=== PATIENT | male | born 1955 | race Caucasian/White ===

== ENCOUNTER → 2020-03-04 08:04 | Outpatient (BNVA) | payer MEDICARE, MEDICAID, SELFPAY | PROVIDERS: PCP Physician Assistant; Visit Provider Family Medicine Adult Medicine | DX: M13.0 Polyarthritis, unspecified (principal); M19.019 Primary osteoarthritis, unspecified shoulder; Z79.891 Long term (current) use of opiate analgesic | CPT/HCPCS: 99212 ==

== ENCOUNTER 2020-04-29 08:00 | Outpatient (REF) | payer MEDICARE, MEDICAID, SELFPAY ==
[2020-04-29 10:04] LABS: Basophils Percent Auto 0.5 % (0-2); Eosinophils Absolute Auto 0.5 X10*3/uL (0.0-0.4); Eosinophils Percent Auto 5.8 % (0-4); Hematocrit 39.8 % (42-52); Hemoglobin 11.9 g/dl (14.0-18.0); Imm Gran Abs Auto 0.04 X10*3/uL (0.00-0.03); Imm Gran Pct Auto 0.5 % (0.0-0.4); Lymphocytes Absolute Auto 1.6 X10*3/uL (1.2-4.9); Lymphocytes Percent Auto 19.1 % (20-40); MANUAL DIFF FLAG NO; Mean Corpuscular HGB Conc 29.9 g/dl (31.0-36.0); Mean Corpuscular Hemoglobin 29.8 pg (27.0-33.0); Mean Corpuscular Volume 99.7 fL (80-98); Monocytes Absolute Auto 0.4 X10*3/uL (0.1-1.2); Monocytes Percent Auto 5.2 % (2-11); Neutrophils Absolute Auto 5.9 X10*3/uL (2.0-8.3); Neutrophils Percent Auto 68.9 % (45-73); Platelet Count 245 X10*3/uL (160-400); Red Blood Count 3.99 X10*6/uL (4.60-5.80); White Blood Count 8.5 X10*3/uL (4.8-10.8)
[2020-04-29 10:36] LABS: B Type Natriuretic Peptide 54 pg/mL (<100)
[2020-04-29 10:41] LABS: Alanine Aminotransferase 16 U/L (0-40); Albumin Level 4.5 g/dL (3.5-5.0); Alkaline Phosphatase 76 U/L (39-117); Anion Gap 13 (12-20); Aspartate Amino Transferase 16 U/L (5-37); Bilirubin Total 0.7 mg/dL (0.0-1.0); Blood Urea Nitrogen 17 mg/dL (9-16); Calcium 8.7 mg/dL (8.4-10.2); Carbon Dioxide 35 mmol/L (22-29); Chloride 95 mmol/L (96-108); Cholesterol 195 mg/dL; Estimated Glomerular Filt Rate > 60; Glucose Fasting 100 mg/dL (60-99); HDL Cholesterol 43 mg/dL; LDL Cholesterol Calculated 126 mg/dl; Potassium 4.4 mmol/l (3.3-5.1); Sodium 139 mmol/L (135-145); Total Protein 7.2 g/dL (6.5-8.0); Triglycerides 131 mg/dL
[2020-04-29 10:54] LABS: Prostate Specific Antigen Scr 1.06 ng/mL (<0.05-4.0); TSH reflex Free T4 2.47 mIU/mL (0.32-4.0)
== END 2020-04-29 08:01 | disposition home or self-care (01) ==
LOC: HO.LAB 08:00
PROVIDERS: PCP Physician Assistant; Referring Provider Physician Assistant; Visit Provider Family Medicine Adult Medicine
DX: I11.0 Hypertensive heart disease with heart failure (principal); I50.32 Chronic diastolic (congestive) heart failure; M13.0 Polyarthritis, unspecified; M19.019 Primary osteoarthritis, unspecified shoulder; M54.5 Low back pain; E78.2 Mixed hyperlipidemia; Z12.5 Encounter for screening for malignant neoplasm of prostate
CPT/HCPCS: 36415; 80053; 80061; 83880; 84153; 84443; 85025; 99212

== ENCOUNTER → 2020-06-24 08:05 | Outpatient (BNVA) | payer MEDICARE, MEDICAID, SELFPAY | PROVIDERS: PCP Physician Assistant; Visit Provider Family Medicine Adult Medicine | DX: M19.019 Primary osteoarthritis, unspecified shoulder (principal); M54.5 Low back pain | CPT/HCPCS: 99212 ==

== ENCOUNTER → 2020-07-29 10:14 | Outpatient (BNVA) | payer MEDICARE, MEDICAID, SELFPAY | PROVIDERS: PCP Physician Assistant; Visit Provider Family Medicine Adult Medicine | DX: M13.0 Polyarthritis, unspecified (principal); M19.019 Primary osteoarthritis, unspecified shoulder; M54.5 Low back pain | CPT/HCPCS: Q3014 ==

== ENCOUNTER → 2020-09-23 08:00 | Outpatient (BNVA) | payer MEDICARE, MEDICAID, SELFPAY | PROVIDERS: PCP Physician Assistant; Visit Provider Family Medicine Adult Medicine | DX: M13.0 Polyarthritis, unspecified (principal); M54.5 Low back pain; J44.9 Chronic obstructive pulmonary disease, unspecified | CPT/HCPCS: 99212 ==

== ENCOUNTER 2020-11-18 07:04 | Outpatient (REF) | payer MEDICARE, MEDICAID, SELFPAY ==
[2020-11-18 08:44] LABS: Hematocrit 36.8 % (42-52); Hemoglobin 10.7 g/dl (14.0-18.0); Mean Corpuscular HGB Conc 29.1 g/dl (31.0-36.0); Mean Corpuscular Hemoglobin 27.4 pg (27.0-33.0); Mean Corpuscular Volume 94.4 fL (80-98); Mean Platelet Volume 9.3 fL (9.4-12.4); Platelet Count 271 X10*3/uL (160-400); Red Cell Distribution Width 13.8 % (11.0-16.0); White Blood Count 8.5 X10*3/uL (4.8-10.8)
[2020-11-18 09:31] LABS: Alanine Aminotransferase 11 U/L (0-40); Albumin Level 4.4 g/dL (3.5-5.0); Alkaline Phosphatase 83 U/L (39-117); Anion Gap 15 (12-20); Aspartate Amino Transferase 15 U/L (5-37); Bilirubin Total 0.9 mg/dL (0.0-1.0); Blood Urea Nitrogen 11 mg/dL (9-16); Calcium 9.3 mg/dL (8.4-10.2); Carbon Dioxide 35 mmol/L (22-29); Chloride 94 mmol/L (96-108); Cholesterol 186 mg/dL; Estimated Glomerular Filt Rate > 60; Glucose Fasting 108 mg/dL (60-99); HDL Cholesterol 37 mg/dL; LDL Cholesterol Calculated 118 mg/dl; Potassium 3.7 mmol/L (3.3-5.1); Sodium 140 mmol/L (135-145); Total Protein 7.1 g/dL (6.5-8.0); Triglycerides 158 mg/dL
[2020-11-18 09:34] LABS: Estimated Average Glucose 120 mg/dL; Hemoglobin A1c % 5.8 %
[2020-11-18 09:45] LABS: Prostate Specific Antigen Scr 0.82 ng/mL (<0.05-4.0); TSH reflex Free T4 1.56 uIU/mL (0.32-4.0)
== END 2020-11-18 07:05 | disposition home or self-care (01) ==
LOC: HO.LAB 07:04
PROVIDERS: PCP Physician Assistant; Visit Provider Physician Assistant
DX: Z12.5 Encounter for screening for malignant neoplasm of prostate (principal); E78.2 Mixed hyperlipidemia; I48.21 Permanent atrial fibrillation; I10 Essential (primary) hypertension; M13.0 Polyarthritis, unspecified; M54.5 Low back pain; J44.9 Chronic obstructive pulmonary disease, unspecified
CPT/HCPCS: 36415; 80053; 80061; 83036; 84153; 84443; 85027; 99212

== ENCOUNTER → 2020-12-23 09:06 | Outpatient (BNVA) | payer MEDICARE, MEDICAID, SELFPAY | PROVIDERS: PCP Physician Assistant; Visit Provider Family Medicine Adult Medicine | DX: M13.0 Polyarthritis, unspecified (principal); J44.9 Chronic obstructive pulmonary disease, unspecified | CPT/HCPCS: 99212 ==

== ENCOUNTER → 2021-02-17 08:15 | Outpatient (BNVA) | payer MEDICARE, MEDICAID, SELFPAY | PROVIDERS: PCP Physician Assistant; Visit Provider Family Medicine Adult Medicine | DX: Z51.81 Encounter for therapeutic drug level monitoring (principal); M13.0 Polyarthritis, unspecified; J44.9 Chronic obstructive pulmonary disease, unspecified; M54.50 Low back pain, unspecified | CPT/HCPCS: 99212 ==

== ENCOUNTER → 2021-03-16 08:25 | Outpatient (BNVA) | payer MEDICARE, MEDICAID, SELFPAY | PROVIDERS: PCP Physician Assistant; Visit Provider Hospitalist | DX: J44.9 Chronic obstructive pulmonary disease, unspecified (principal); R91.8 Other nonspecific abnormal finding of lung field | CPT/HCPCS: 99202 ==

== ENCOUNTER 2021-04-14 08:39 | Outpatient (REF) | payer MEDICARE, MEDICAID, SELFPAY ==
[2021-04-14 09:40] LABS: MANUAL DIFF FLAG NO
[2021-04-14 10:21] LABS: Basophils Absolute Auto 0.1 X10*3/uL (0.0-0.2); Basophils Percent Auto 0.7 % (0-2); Eosinophils Absolute Auto 0.4 X10*3/uL (0.0-0.4); Eosinophils Percent Auto 5.7 % (0-4); Hematocrit 36.2 % (42.0-52.0); Hemoglobin 10.4 g/dl (14.0-18.0); Imm Gran Abs Auto 0.03 X10*3/uL (0.00-0.03); Imm Gran Pct Auto 0.4 % (0.0-0.4); Lymphocytes Absolute Auto 1.7 X10*3/uL (1.2-4.9); Lymphocytes Percent Auto 21.9 % (20-40); Mean Corpuscular HGB Conc 28.7 g/dl (31.0-36.0); Mean Corpuscular Hemoglobin 26.1 pg (27.0-33.0); Mean Platelet Volume 9.2 fL (9.4-12.4); Monocytes Absolute Auto 0.4 X10*3/uL (0.1-1.2); Monocytes Percent Auto 5.2 % (2-11); Neutrophils Absolute Auto 5.1 x10*3/uL (2.0-8.3); Neutrophils Percent Auto 66.1 % (45-73); Platelet Count 315 X10*3/uL (160-400); Red Blood Count 3.98 X10*6/uL (4.60-5.80); Red Cell Distribution Width 14.7 % (11.0-16.0); White Blood Count 7.7 X10*3/uL (4.8-10.8)
[2021-04-14 11:00] LABS: Creatinine Urine 12.97 mg/dL; Microalbum/Creatinine Ratio Ur 223.5 ug/mg cr
[2021-04-14 11:38] LABS: Erythrocyte Sedimentation Rate 30 MM/HR (0-15)
[2021-04-16 13:51] LABS: IgA 197 mg/dL (70-320); IgG 945 mg/dL (600-1540); IgM 30 mg/dL (50-300)
== END 2021-04-14 08:40 | disposition home or self-care (01) ==
LOC: HO.LAB 08:39
PROVIDERS: PCP Physician Assistant; Referring Provider Hospitalist; Visit Provider Family Medicine Adult Medicine
DX: J44.9 Chronic obstructive pulmonary disease, unspecified (principal); I10 Essential (primary) hypertension
CPT/HCPCS: 36415; 82043; 82784; 85025; 85652; 99211

== ENCOUNTER 2021-05-03 08:41 | Outpatient (REF) | payer MEDICARE, MEDICAID, SELFPAY | END 2021-05-03 08:42 | disposition home or self-care (01) | LOC: HO.LNP 08:41 | PROVIDERS: PCP Physician Assistant; Visit Provider Hospitalist | DX: J44.9 Chronic obstructive pulmonary disease, unspecified (principal); R91.8 Other nonspecific abnormal finding of lung field; B96.5 Pseudomonas (aeruginosa) (mallei) (pseudomallei) as the cause of diseases classified elsewhere; Z87.891 Personal history of nicotine dependence; Z96.653 Presence of artificial knee joint, bilateral; Z96.612 Presence of left artificial shoulder joint; Z96.611 Presence of right artificial shoulder joint | CPT/HCPCS: 87070; 87077; 87186; 87205; 99212 ==

== ENCOUNTER → 2021-05-12 08:36 | Outpatient (BNVA) | payer MEDICARE, MEDICAID, SELFPAY | PROVIDERS: PCP Physician Assistant; Visit Provider Anesthesiology | DX: Z51.81 Encounter for therapeutic drug level monitoring (principal); F11.20 Opioid dependence, uncomplicated; M13.0 Polyarthritis, unspecified; M54.50 Low back pain, unspecified; J44.9 Chronic obstructive pulmonary disease, unspecified | CPT/HCPCS: 99212 ==

== ENCOUNTER → 2021-06-08 09:03 | Outpatient (BNVA) | payer MEDICARE, MEDICAID, SELFPAY | PROVIDERS: PCP Physician Assistant; Visit Provider Anesthesiology | DX: Z51.81 Encounter for therapeutic drug level monitoring (principal); F11.20 Opioid dependence, uncomplicated; M13.0 Polyarthritis, unspecified; M54.50 Low back pain, unspecified; J44.9 Chronic obstructive pulmonary disease, unspecified | CPT/HCPCS: 99212 ==

== ENCOUNTER 2021-07-06 09:03 | Outpatient (REF) | payer MEDICARE, MEDICAID, SELFPAY ==
[2021-07-06 11:21] LABS: Hematocrit 36.3 % (42.0-52.0); Hemoglobin 10.2 g/dl (14.0-18.0); Mean Corpuscular HGB Conc 28.1 g/dl (31.0-36.0); Mean Corpuscular Hemoglobin 24.7 pg (27.0-33.0); Mean Corpuscular Volume 87.9 fL (80.0-98.0); Mean Platelet Volume 8.8 fL (9.4-12.4); Platelet Count 292 X10*3/uL (160-400); Red Blood Count 4.13 X10*6/uL (4.60-5.80); Red Cell Distribution Width 14.3 % (11.0-16.0); White Blood Count 7.6 X10*3/uL (4.8-10.8)
[2021-07-06 11:25] LABS: Estimated Average Glucose 117 mg/dL; Hemoglobin A1c % 5.7 %
[2021-07-06 11:51] LABS: Alanine Aminotransferase 14 U/L (0-40); Albumin Level 4.7 g/dL (3.5-5.0); Alkaline Phosphatase 78 U/L (39-117); Anion Gap 15 (12-20); Aspartate Amino Transferase 20 U/L (5-37); Bilirubin Total 1.2 mg/dL (0.0-1.0); Blood Urea Nitrogen 13 mg/dL (9-16); Calcium 9.9 mg/dL (8.4-10.2); Carbon Dioxide 35 mmol/L (22-29); Chloride 94 mmol/L (96-108); Cholesterol 192 mg/dL; Estimated Glomerular Filt Rate > 60; Glucose Fasting 90 mg/dL (60-99); HDL Cholesterol 49 mg/dL; Iron 40 mcg/dL (45-160); LDL Cholesterol Calculated 120 mg/dl; Percent Iron Saturation 9 % (15-50); Potassium 4.4 mmol/L (3.3-5.1); Sodium 140 mmol/L (135-145); Total Iron Binding Capacity 458 mcg/dL (228-428); Total Protein 7.7 g/dL (6.5-8.0); Triglycerides 116 mg/dL; Unsaturated Iron Binding 418 ug/dL
[2021-07-06 12:14] LABS: Prostate Specific Antigen Scr 1.08 ng/mL (<0.05-4.0)
[2021-07-06 12:19] LABS: Creatinine Urine 8.87 mg/dL; Microalbum/Creatinine Ratio Ur 338.2 ug/mg cr
[2021-07-06 12:25] LABS: Folate > 20.0 ng/mL (> or = 4.0); Vitamin B12 1301 pg/mL (200-900)
== END 2021-07-06 09:04 | disposition home or self-care (01) ==
LOC: HO.LAB 09:03
PROVIDERS: PCP Physician Assistant; Visit Provider Anesthesiology
DX: M13.0 Polyarthritis, unspecified (principal); M54.50 Low back pain, unspecified; J44.9 Chronic obstructive pulmonary disease, unspecified; Z79.891 Long term (current) use of opiate analgesic; E78.2 Mixed hyperlipidemia; D64.9 Anemia, unspecified; D50.9 Iron deficiency anemia, unspecified; Z12.5 Encounter for screening for malignant neoplasm of prostate
CPT/HCPCS: 36415; 80053; 80061; 82043; 82607; 82746; 83036; 83540; 84153; 84443; 85027; 99212

== ENCOUNTER → 2021-07-26 08:26 | Outpatient (BNVA) | payer MEDICARE, MEDICAID, SELFPAY | PROVIDERS: PCP Physician Assistant; Visit Provider Hospitalist | DX: J44.9 Chronic obstructive pulmonary disease, unspecified (principal); R91.8 Other nonspecific abnormal finding of lung field | CPT/HCPCS: 94010; 99212 ==

== ENCOUNTER → 2021-08-03 08:13 | Outpatient (BNVA) | payer MEDICARE, MEDICAID, SELFPAY | PROVIDERS: PCP Physician Assistant; Visit Provider Anesthesiology | DX: M13.0 Polyarthritis, unspecified (principal); M54.50 Low back pain, unspecified; J44.9 Chronic obstructive pulmonary disease, unspecified | CPT/HCPCS: 99212 ==

== ENCOUNTER → 2021-08-31 08:22 | Outpatient (BNVA) | payer MEDICARE, MEDICAID, SELFPAY | PROVIDERS: PCP Physician Assistant; Visit Provider Anesthesiology | DX: Z13.89 Encounter for screening for other disorder (principal) ==

== ENCOUNTER 2021-09-02 13:19 | Outpatient (REF) | payer MEDICARE, MEDICAID, SELFPAY ==
--- NOTE | ~2021-09-02 | CT_ITS ---
EXAMINATION: CT CHEST SCREENING CLINICAL INFORMATION: Personal history of nicotine dependence. COMPARISON: CT chest 09/04/2017 and CTA chest 05/19/19. TECHNIQUE: Multidetector volumetric CT imaging of the chest is performed without contrast using low dose technique. Additional 2D coronal and sagittal reformatted images and axial 3D maximum intensity projection (MIP) images are generated on the CT workstation. This CT examination was performed using dose optimization techniques as appropriate, variously including the following: *Automated exposure control *Adjustment of mA and/or kV according to patient size (this includes techniques or standardized protocols for targeted exams where dose is matched to indication/reason for exam; i.e. extremities or head) *Use of iterative reconstruction technique DLP: 111 mGy-cm. FINDINGS: LUNGS: The lungs are well expanded with a 5 mm nodule right upper lobe axial image 241/6, a right perihilar 5 mm nodule axial image 249/6, a 5 mm nodule right middle lobe axial image 299/6, a 2 mm nodule right lower lobe subpleural location axial image 284/6, a 4 mm nodule right lower lobe axial image 317/6, a 1.1 cm nodule right middle lobe axial image 350/6, a 1.4 cm pleural-based nodule axial image 369/6, a 9 mm nodule subpleural based left lower lobe axial image 389/6. No drastic changes seen in the size of the large nodules to be suspicious. There is bilateral lower lobe atelectasis or scarring. MEDIASTINUM: Central trachea and the bronchi are widely patent. The thyroid lobes are symmetrical and normal. Heart size and the great vessels are normal caliber. Small shotty lymph nodes are seen in the pretracheal space. Heart size and the great vessels are normal caliber. There is no pericardial effusion. There are coronary artery calcifications present. PLEURA: There is no pleural effusion. No pleural mass or thickening. AXILLA: No abnormal axillary lymph nodes seen. The chest wall is unremarkable. UPPER ABDOMEN: Visualized liver, spleen and pancreas are unremarkable. OSSEOUS STRUCTURES: No aggressive lytic or sclerotic process seen. 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 The findings are stable. Moderate right costovertebral hypertrophic changes are seen at T6-T7 and T7-T8 disc level and minimally on the left side. CT/CT lung screening IMPRESSION: Multiple bilateral pulmonary nodules and bilateral lower lobe atelectasis and/or scarring, stable. No acute pneumonic process seen. ASSESSMENT: Lung-RADS category 2: Benign. RECOMMENDATION: Continued low-dose CT chest exam.
== END 2021-09-02 13:20 | disposition home or self-care (01) ==
LOC: HO.CT 13:19
PROVIDERS: PCP Physician Assistant; Visit Provider Physician Assistant Medical
DX: Z12.2 Encounter for screening for malignant neoplasm of respiratory organs (principal); Z87.891 Personal history of nicotine dependence
CPT/HCPCS: 71271; G0296

== ENCOUNTER → 2021-09-28 08:48 | Outpatient (BNVA) | payer MEDICARE, MEDICAID, SELFPAY | PROVIDERS: PCP Physician Assistant; Visit Provider Anesthesiology | DX: Z51.81 Encounter for therapeutic drug level monitoring (principal); Z79.899 Other long term (current) drug therapy | CPT/HCPCS: 99211 ==

== ENCOUNTER 2021-10-14 11:34 | Outpatient (REF) | payer MEDICARE, MEDICAID, SELFPAY | END 2021-10-14 11:35 | disposition home or self-care (01) | LOC: HO.LNP 11:34 | PROVIDERS: Visit Provider Hospitalist | DX: R06.00 Dyspnea, unspecified (principal); J44.9 Chronic obstructive pulmonary disease, unspecified; R91.8 Other nonspecific abnormal finding of lung field | CPT/HCPCS: 87070; 87077; 87186; 87205; 99212 ==

== ENCOUNTER → 2021-10-27 08:29 | Outpatient (BNVA) | payer MEDICARE, MEDICAID, SELFPAY | PROVIDERS: PCP Physician Assistant; Visit Provider Anesthesiology | DX: Z51.81 Encounter for therapeutic drug level monitoring (principal); F11.20 Opioid dependence, uncomplicated | CPT/HCPCS: 99211 ==

== ENCOUNTER → 2021-11-18 10:05 | Outpatient (BNVA) | payer MEDICARE, MEDICAID, SELFPAY | PROVIDERS: PCP Physician Assistant; Visit Provider Hospitalist | DX: J41.1 Mucopurulent chronic bronchitis (principal); J47.9 Bronchiectasis, uncomplicated; R91.8 Other nonspecific abnormal finding of lung field; Z79.899 Other long term (current) drug therapy | CPT/HCPCS: 99212 ==

== ENCOUNTER → 2021-12-01 08:03 | Outpatient (BNVA) | payer MEDICARE, MEDICAID, SELFPAY | PROVIDERS: PCP Physician Assistant; Visit Provider Anesthesiology | DX: M13.0 Polyarthritis, unspecified (principal); J44.9 Chronic obstructive pulmonary disease, unspecified; M54.50 Low back pain, unspecified | CPT/HCPCS: 99212 ==

== ENCOUNTER → 2021-12-28 08:47 | Outpatient (BNVA) | payer MEDICARE, MEDICAID, SELFPAY | PROVIDERS: PCP Physician Assistant; Visit Provider Anesthesiology | DX: Z51.81 Encounter for therapeutic drug level monitoring (principal); F11.20 Opioid dependence, uncomplicated; M13.0 Polyarthritis, unspecified; M54.50 Low back pain, unspecified; J44.9 Chronic obstructive pulmonary disease, unspecified | CPT/HCPCS: 99212 ==

== ENCOUNTER 2022-01-18 09:53 | Outpatient (REF) | payer MEDICARE, MEDICAID, SELFPAY ==
[2022-01-18 10:50] LABS: Hematocrit 42.3 % (42.0-52.0); Hemoglobin 13.4 g/dl (14.0-18.0); Mean Corpuscular HGB Conc 31.7 g/dl (31.0-36.0); Mean Corpuscular Hemoglobin 32.4 pg (27.0-33.0); Mean Corpuscular Volume 102.4 fL (80.0-98.0); Mean Platelet Volume 9.1 fL (9.4-12.4); Platelet Count 256 X10*3/uL (160-400); Red Blood Count 4.13 X10*6/uL (4.60-5.80); Red Cell Distribution Width 12.3 % (11.0-16.0); White Blood Count 7.7 X10*3/uL (4.8-10.8)
[2022-01-18 11:31] LABS: Alanine Aminotransferase 54 U/L (0-40); Albumin Level 4.6 g/dL (3.5-5.0); Alkaline Phosphatase 167 U/L (39-117); Anion Gap 16 (12-20); Aspartate Amino Transferase 32 U/L (5-37); Bilirubin Total 0.9 mg/dL (0.0-1.0); Blood Urea Nitrogen 15 mg/dL (9-16); Carbon Dioxide 37 mmol/L (22-29); Chloride 94 mmol/L (96-108); Cholesterol 175 mg/dL; Estimated Glomerular Filt Rate > 60; Glucose Fasting 101 mg/dL (60-99); HDL Cholesterol 52 mg/dL; LDL Cholesterol Calculated 104 mg/dl; Potassium 3.7 mmol/L (3.3-5.1); Sodium 143 mmol/L (135-145); Total Protein 7.3 g/dL (6.5-8.0); Triglycerides 97 mg/dL
[2022-01-18 11:35] LABS: TSH reflex Free T4 1.69 uIU/mL (0.32-4.0)
== END 2022-01-18 09:54 | disposition home or self-care (01) ==
LOC: HO.LAB 09:53
PROVIDERS: Absent Provider Hospitalist; PCP Physician Assistant; Visit Provider Physician Assistant
DX: I11.0 Hypertensive heart disease with heart failure (principal); I50.32 Chronic diastolic (congestive) heart failure; E78.2 Mixed hyperlipidemia
CPT/HCPCS: 36415; 80053; 80061; 84443; 85027

== ENCOUNTER → 2022-01-23 08:24 | Outpatient (BNVA) | payer MEDICARE, MEDICAID, SELFPAY | PROVIDERS: PCP Physician Assistant; Visit Provider Hospitalist | DX: Z23 Encounter for immunization (principal); J41.1 Mucopurulent chronic bronchitis; J47.9 Bronchiectasis, uncomplicated; R91.8 Other nonspecific abnormal finding of lung field | CPT/HCPCS: 90471; 90677; 99212 ==

== ENCOUNTER → 2022-01-25 08:27 | Outpatient (BNVA) | payer MEDICARE, MEDICAID, SELFPAY | PROVIDERS: PCP Physician Assistant; Visit Provider Anesthesiology | DX: Z51.81 Encounter for therapeutic drug level monitoring (principal); F11.20 Opioid dependence, uncomplicated; M13.0 Polyarthritis, unspecified; M54.50 Low back pain, unspecified; J44.9 Chronic obstructive pulmonary disease, unspecified | CPT/HCPCS: 99212 ==

== ENCOUNTER → 2022-02-21 08:22 | Outpatient (BNVA) | payer MEDICARE, MEDICAID, SELFPAY | PROVIDERS: PCP Physician Assistant; Visit Provider Anesthesiology | DX: Z51.81 Encounter for therapeutic drug level monitoring (principal); F11.20 Opioid dependence, uncomplicated | CPT/HCPCS: 99211 ==

== ENCOUNTER → 2022-03-30 08:14 | Outpatient (BNVA) | payer MEDICARE, MEDICAID, SELFPAY | PROVIDERS: PCP Physician Assistant; Visit Provider Anesthesiology | DX: Z51.81 Encounter for therapeutic drug level monitoring (principal); F11.20 Opioid dependence, uncomplicated; J44.9 Chronic obstructive pulmonary disease, unspecified; M13.0 Polyarthritis, unspecified; M54.50 Low back pain, unspecified | CPT/HCPCS: 99212 ==

== ENCOUNTER → 2022-04-26 08:25 | Outpatient (BNVA) | payer MEDICARE, MEDICAID, SELFPAY | PROVIDERS: PCP Physician Assistant; Visit Provider Anesthesiology | DX: Z13.89 Encounter for screening for other disorder (principal) ==

== ENCOUNTER 2022-05-29 08:38 | Outpatient (REF) | payer MEDICARE, MEDICAID, SELFPAY ==
[2022-05-29 09:51] LABS: Hematocrit 38.5 % (42.0-52.0); Hemoglobin 12.7 g/dl (14.0-18.0); Mean Corpuscular Volume 106.1 fL (80.0-98.0); Mean Platelet Volume 9.4 fL (9.4-12.4); Platelet Count 376 X10*3/uL (160-400); Red Blood Count 3.63 X10*6/uL (4.60-5.80); Red Cell Distribution Width 17.5 % (11.0-16.0); White Blood Count 6.4 X10*3/uL (4.8-10.8)
[2022-05-29 10:56] LABS: Alanine Aminotransferase 125 U/L (0-40); Albumin Level 3.3 g/dL (3.5-5.0); Alkaline Phosphatase 665 U/L (39-117); Anion Gap 14 (12-20); Aspartate Amino Transferase 144 U/L (5-37); Blood Urea Nitrogen 16 mg/dL (9-16); Calcium 9.3 mg/dL (8.4-10.2); Carbon Dioxide 26 mmol/L (22-29); Chloride 100 mmol/L (96-108); Cholesterol 309 mg/dL; Estimated Glomerular Filt Rate > 60; Glucose Fasting 105 mg/dL (60-99); HDL Cholesterol 6 mg/dL; LDL Cholesterol Calculated 248 mg/dl; Potassium 3.3 mmol/L (3.3-5.1); Sodium 137 mmol/L (135-145); Total Protein 5.6 g/dL (6.5-8.0); Triglycerides 276 mg/dL
[2022-05-29 11:10] LABS: Bilirubin Total 47.5 mg/dL (0.0-1.0); TSH reflex Free T4 1.08 uIU/mL (0.32-4.0)
[2022-05-29 11:12] LABS: Creatinine Urine 58.35 mg/dL; Microalbum/Creatinine Ratio Ur 61.6 ug/mg cr
== END 2022-05-29 08:39 | disposition home or self-care (01) ==
LOC: HO.LAB 08:38
PROVIDERS: Absent Provider Physician Assistant; PCP Physician Assistant; Visit Provider Anesthesiology
DX: M13.0 Polyarthritis, unspecified (principal); M54.50 Low back pain, unspecified; J44.9 Chronic obstructive pulmonary disease, unspecified; I10 Essential (primary) hypertension; E78.2 Mixed hyperlipidemia; Z79.899 Other long term (current) drug therapy
CPT/HCPCS: 36415; 80053; 80061; 82043; 84443; 85027; 99212

== ENCOUNTER → 2022-05-31 08:31 | Outpatient (BNVA) | payer MEDICARE, MEDICAID, SELFPAY | PROVIDERS: PCP Physician Assistant; Visit Provider Hospitalist | DX: Z23 Encounter for immunization (principal) ==

== ENCOUNTER 2022-05-31 08:56 | Emergency (ER) | payer MEDICARE, MEDICAID, SELFPAY ==
--- NOTE | ~2022-05-31 | CT_ITS ---
EXAMINATION: CT ABDOMEN AND PELVIS WITH CONTRAST CLINICAL INFORMATION: Abdominal distention with new jaundice and high LFTs COMPARISON: CT abdomen pelvis 01/01/2018 TECHNIQUE: Multidetector volumetric images were obtained from the superior aspect of the liver through the pubic symphysis following administration 85 mL of Omnipaque 350 intravenous contrast. Sagittal and coronal reformatted images were obtained on the technologist's workstation. Oral contrast: No This CT examination was performed using dose optimization techniques as appropriate, variously including the following: *Automated exposure control *Adjustment of mA and/or kV according to patient size (this includes techniques or standardized protocols for targeted exams where dose is matched to indication/reason for exam; i.e. extremities or head) *Use of iterative reconstruction technique DLP: 1203 mGy-cm FINDINGS: LUNG BASES: Lung nodules are present at the bases. There may be a 1 cm nodule seen at the right lung base but this is incompletely imaged (4:1 there is a pleural-based 1.2 cm right lower lobe nodule laterally unchanged from 01/01/2018 (4:67 compare prior 2:1). LIVER, GALLBLADDER, AND BILIARY TREE: The liver is enlarged measuring 22 cm in greatest cephalocaudad dimension. There is new marked intrahepatic biliary ductal dilatation the common bile duct is not well seen and is now dilated. The gallbladder if present is markedly contracted and abnormal. Central hypoattenuating liver mass is seen measuring 3.9 x 3.9 x 4.2 cm (4:172 and 503:404). Multiple other smaller liver masses are present as well (see [facility]). PANCREAS: Unremarkable. SPLEEN: Spleen is enlarged at 17 cm. ADRENAL GLANDS: Multiple nodules seen in the right adrenal gland unchanged from prior. Mild thickening of the left adrenal gland present as well. KIDNEYS AND URETERS: The kidneys are normal in size, shape, and attenuation. Bilateral Bosniak class I renal cysts are present which need no additional imaging or follow-up. There is an anterior cortical 4 mm calcification seen in the right kidney. No Hydronephrosis, hydroureter, or collecting system calculi seen. No perinephric stranding. BLADDER: Unremarkable. GASTROINTESTINAL TRACT: The small and large bowel are unremarkable. The appendix is unremarkable. ABDOMINAL WALL: No significant hernia is appreciated. LYMPH NODES: No gross retroperitoneal lymphadenopathy. VASCULAR: Calcific aorta iliofemoral atherosclerotic changes. Portal venous system is patent. The hepatic veins are poorly opacified but most likely patent. PELVIC VISCERA: The prostate and seminal vesicles are unremarkable. OSSEOUS STRUCTURES: Marked degenerative changes from L4 through S1. CT/CT abdomen pelvis w IV con IMPRESSION: 1. New marked intrahepatic biliary ductal dilatation. The gallbladder appears abnormal. Site of obstruction is near the miah hepatis. If percutaneous biliary drainage or ERCP is not performed, MRCP may be useful for further evaluation 2. Multiple new liver masses, the largest centrally measuring 4.2 cm. 3. Stable right adrenal nodules. 4. Other incidental findings as described above including hepatosplenomegaly and degenerative changes in the spine. 5. Pulmonary nodules at the lung bases, the largest measuring 1.2 cm. These are unchanged when compared to the 2018 study. Fleischner guidelines were followed.
[2022-05-31 08:59] VITALS: BP 111/60; PULSE 81; RESP 18; TEMP 36.6; O2SAT 97; BMI 33.9
--- NOTE | 2022-05-31 09:36 | ED_ITS ---
HPI - General Adult General Chief complaint: Skin/Abscess/Foreign Body Stated complaint: Jaundice Time Seen by Provider: 05/31/22 09:08 Source: patient Mode of arrival: ambulatory Limitations: no limitations History of Present Illness HPI narrative: Patient is a 67-year-old male presents to the emergency department today with referral from pulmonology office. He was at Dr. 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 Upon presenting to the office he was noted to be significantly jaundiced, without any history of liver failure. Therefore he was referred to emergency department. His only complaint is that he has noticed he has been a little more dizzy than usual over the past few days. When asked, he states that he 1st noticed the jaundice about 4 weeks ago, was actually noted by family member. Has become increasingly more noticeable. When asked whether he spoke with his primary care provider in regards to this, he states he has been at this time because his PCP is on paternity leave. Denies alcohol consumption, OTC pain medication, drug usage, reports a remote history of hepatitis-C in the 1960s Related Data Home Medications Medication Instructions Recorded Confirmed dextromethorphan-guaifenesin 30 2 tab PO Q12H PRN Congestion 12/16/20 05/31/22 mg-600 mg tablet extended xoodqut12 hr (Mucinex DM) multivitamin 1 tab PO DAILY 01/14/21 05/31/22 acetaminophen 325 mg tablet 650 mg PO Q4H PRN pain 07/28/21 05/31/22 azithromycin 500 mg tablet 500 mg PO MOWEFR 05/31/22 05/31/22 fluticasone fur. 200 mcg-umeclid 1 inh PO DAILY 05/31/22 05/31/22 62.5 mcg-vilant 25 mcg inhalat.powder (Trelegy Ellipta) psyllium 1 packet PO DAILY 05/31/22 05/31/22 rivaroxaban 20 mg tablet (Xarelto) 20 mg PO DAILY@1700 05/31/22 05/31/22 Previous Rx's Medication Instructions Recorded ferrous sulfate 325 mg (65 mg 325 mg PO BID 90 days #180 tabs 10/04/21 iron) tablet cetirizine 10 mg tablet 10 mg PO DAILY 90 days #90 tabs 11/02/21 cyanocobalamin (vitamin B-12) 100 100 mcg PO DAILY 90 days #90 tabs 11/02/21 mcg tablet fluticasone propionate 50 2 spray intranasal BID 90 days #3 11/02/21 mcg/actuation nasal ea spray,suspension furosemide 80 mg tablet 80 mg PO BID #180 tabs 11/02/21 gabapentin 800 mg tablet 800 mg PO TID 90 days #270 tabs 11/02/21 nicotine (polacrilex) 4 mg buccal 4 mg PO Q8H PRN for nicotine 11/02/21 lozenge cravings #72 ea omeprazole 40 mg capsule,delayed 40 mg PO DAILY #90 caps 11/02/21 release potassium chloride 10 mEq 10 meq PO DAILY #90 tabs 11/02/21 tablet,extended release telmisartan 40 mg tablet 40 mg PO DAILY #90 ea 11/02/21 tobramycin 300 mg/4 mL solution 300 mg (4 mL) inhalation Q12H 28 11/21/21 for nebulization days #224 mL ipratropium 0.5 mg-albuterol 3 mg 1 ml inhalation Q6H #1,080 mL 12/13/21 (2.5 mg base)/3 mL nebulization soln ezetimibe 10 mg tablet 10 mg PO DAILY 90 days #90 tabs 01/11/22 clonazepam 2 mg tablet 2 mg PO BID 30 days #60 tabs 02/22/22 albuterol sulfate 90 mcg/actuation 2 puff PO Q6H PRN for wheezing #1 05/22/22 aerosol inhaler ea buprenorphine HCl 900 mcg buccal 900 mcg PO Q12H 30 days #60 ea 05/29/22 film oxycodone-acetaminophen 10 mg-325 1 tab PO Q6H PRN pain, severe 30 05/29/22 mg tablet days #120 tabs Allergies Allergy/AdvReac Type Severity Reaction Status Date / Time No Known Allergies Allergy Verified 05/31/22 08:38 Review of Systems Review of Systems: Constitutional: No weight loss. No fever. No chills. No weakness. No fatigue. Eye: No swelling. No redness. ENT: No sore throat. No rhinorrhea. No nasal congestion. No sore throat. No difficulty swallowing. Skin: No rash. No itching. Positive jaundice. Cardiovascular: No chest pain. No chest pressure. No palpitations. No pedal edema. Respiratory: Positive shortness of breath. Positive cough. Positive sputum production. Gastrointestinal: No anorexia. No nausea. No vomiting. No diarrhea. No abdominal pain. Positive abdominal distention. No blood in stool. Genitourinary: No burning micturition. No urinary frequency. No incontinence. Neurologic: No headache. Positive dizziness. No pre-syncope/ syncope. No unilateral weakness. No ataxia. No numbness. No tingling. No change in bowel or bladder control. Musculoskeletal: No muscle pain. No back pain. No joint pain. No stiffness. Hematologic: No bleeding. No bruising. Yes all other systems are reviewed and are negative PMFSH Past Medical History Attestation statement: The following information was validated with the patient. Source: old records reviewed Medical History Afib Bronchiectasis CHF (congestive heart failure), NYHA class III Chronic obstructive pulmonary disease, unspecified Chronic, continuous use of opioids GERD (gastroesophageal reflux disease) HLD (hyperlipidemia) HTN (hypertension) Multiple joint disease Obesity Personal history of nicotine dependence Pulmonary nodules Surgical History H/O hernia repair History of appendectomy History of arthroscopy of both knees (~2006) History of arthroscopy of both shoulders (~2003) History of basal cell carcinoma (BCC) excision (~1999) History of left shoulder replacement (~2011) History of surgery History of surgery on arm History of total knee replacement Family History Family History Father Heart disease Diabetes Arthritis Hypertension CAD (coronary artery disease) Mother Hypertension Cancer CAD (coronary artery disease) Sister Chronic mental illness Substance use disorder Brother Heart problem Social History Social History Housing: Apartment Alcohol intake: former Patient Tobacco Use Status: Former Tobacco user Quit Date: 2018 Years Smoked: 35 year e-Cigarette/Vaping Use: Never Used Second Hand Smoke Exposure: No Advance Directives: Yes Advance Directives on File: Yes Advance Directives Date on File: 11/01/21 service: No Current occupational status: retired Cognitive needs: Yes Hearing needs: No Vision needs: Yes Physical Exam ED Vital Signs: Vital Signs - 24 hr 05/31/22 08:59 05/31/22 10:02 05/31/22 14:41 Temperature 97.8 F Pulse Rate 81 76 91 Respiratory Rate 18 22 H 19 Blood Pressure 111/60 125/77 Pulse Oximetry 97 100 98 Oxygen Delivery Method Nasal Cannula Nasal Cannula Room Air Oxygen Flow Rate 3 BMI result Body Mass Index 33.9 Appearance: Alert.?Oriented to person, place and time. No acute distress.?Normal affect. Eyes: Pupils equal, round and reactive to light.? No nystagmus. EOMI. Positive scleral icterus ENT: Pharynx normal.?? Neck: Normal inspection.? Neck supple.?? CVS: Heart sounds normal. Normal heart rate and rhythm.? Pulses normal.?? Respiratory: No respiratory distress.? Lung sounds with rhonchi bilaterally Abdomen: Semi firm, round, right upper/lateral abdominal tenderness upon palpation. Normoactive bowel sounds. No pulsatile mass.?? Skin: Skin warm and dry.? Positive Jaundice. Extremities: No lower extremity edema.? No calf ttp? Neuro: Moves all extremities spontaneously. Sensation intact bilaterally. CN II-XII intact. No focal neuro deficits. Ambulates with normal steady gait. No asterixis. Course Reevaluation(s) Reevaluation #1: CBC revealing a macrocytic anemia which appears consistent with baseline, does not meet transfusion criteria. Transaminases have increased, total bilirubin 50.3 with direct bilirubin >30. Gastroenterology Dr. Pride, at bedside for evaluation spoke with patient and family. He reviewed CT imaging personally. CT reveals marked intrahepatic biliary ductal dilation, site of obstruction near the miah hepaticus, multiple new liver masses, largest being centrally at 4.2 c m. At this time GI requests order MRI of the abdomen and pelvis with without contrast/MRCP for evaluation of obstructive jaundice prior to leaving the emergency department, it is his recommendation that at this time patient is stable to be discharged, he is mentating appropriately, is not encephalopathic, and he has been tolerating oral intake. Time: 12:26 Reevaluation #2: Dr. Pride recommends admission to Medicine Service, patient to have MRI abdomen with and without contrast and MRCP scheduled for tomorrow to evaluate for obstructive jaundice. Patient received IV vitamin K, tumor markers are pending. Patient to hold Xarelto, acetaminophen, and any statin medication. At this time concern for malignant biliary obstruction due to a probable cholangiocarcinoma, gallbladder cancer, or pancreatic neoplasm. Patient is agreeable with plan of care for admission, will reach out to medicine service for admission at this time. Time: 14:07 Reevaluation #3: Per hospitalist, Dr. Salmon, based on recommendations from Dr. Pride patient does not require admission to medicine service at this time. Time: 14:45 Additional Reevaluation(s): 16:00 at this time patient is going to be discharged home, outpatient follow-up with gastroenterology; Dr. Pride. Who will arrange for MRI/MRCP. His office will reach out to patient, patient's brother, and primary care provider to coord inate further management of care. Reviewed patient's home medication list, he is to hold Xarelto, any acetaminophen, and any statin medications. Patient verbalizes understanding of this. Patient's brother also aware of plan of care. Patient remains conscious alert and oriented x4, ambulatory with a steady gait. Stable for discharge. Medications Administered Discontinued Medications Generic Name Dose Route Start Last Admin Trade Name Freq PRN Reason Stop Dose Admin Phytonadione 10 mg/ Sodium 51 mls @ 51 mls/hr 05/31/22 12:44 05/31/22 15:21 Chloride IV 05/31/22 13:43 Infused ONCE ONE Infusion Iohexol 85 ml 05/31/22 11:40 05/31/22 11:41 Iohexol 350 Mg/Ml 100 Ml Infus..Btl IV 05/31/22 11:41 85 ml ONCE ONE Administration Medical Decision Making Medical Decision Making MDM Narrative: Patient is a 67-year-old male with past medical history of atrial fibrillation on metoprolol and Xarelto, CHF, end-stage COPD followed by pulmonology, GERD, hyperlipidemia, hypertension obesity, chronic pain followed by pain management clinic; oxycodone,Belbuca, gabapentin, presenting to emergency department with referral from pulmonology for evaluation of jaundice and reports of dizziness. Upon review of medical record, outpatient labs were obtained 2 days ago 05/29/2022, with significantly abnormal LFTs; total bilirubin 47.5, AST 144, ALT 125, alkaline phosphatase 665, total protein 5.6 albumin 3.1, which is vastly abnormal when compared to prior labs 01/18/2022. Differential Diagnosis Differential Diagnoses: The differential diagnosis associated with the presentation includes (As noted in course) Consult Healthcare Provider Management of the patient was discussed with: Hospitalist and [employer] (Gastroenterology as noted in course) Lab Data MDM Lab Attestation statement: I reviewed the patient's lab results. 05/31/22 09:45 05/31/22 09:45 Labs: Lab Results 05/31/22 05/31/22 05/31/22 Range/Units 09:45 09:45 09:45 WBC 5.4 (4.8-10.8) X10*3/uL RBC 3.45 L (4.60-5.80) X10*6/uL Hgb 12.4 L (14.0-18.0) g/dl Hct 37.0 L (42.0-52.0) % MCV 107.2 H (80.0-98.0) fL MCH 35.9 H (27.0-33.0) pg MCHC 33.5 (31.0-36.0) g/dl RDW 16.7 H (11.0-16.0) % Plt Count 254 D (160-400) X10*3/uL MPV 9.1 L (9.4-12.4) fL Absolute Nucleated RBC 0.000 (0.0-0.012) X10*3/uL Nucleated RBC % (auto) 0.0 (0.0-0.2) /100WBC PT (10.0-13.1) SEC INR (0.9-1.1) APTT (26.0-36.4) SEC Sodium 134 L (135-145) mmol/L Potassium 3.3 (3.3-5.1) mmol/L Chloride 104 (96-108) mmol/L Carbon Dioxide 19 L (22-29) mmol/L Anion Gap 14 (12-20) BUN 14 (9-16) mg/dL Creatinine 0.83 (0.5-1.4) mg/dL Estim Creat Clear Calc 113.8 Estimated GFR > 60 Random Glucose 96 (60-115) mg/dL Calcium 8.9 (8.4-10.2) mg/dL Total Bilirubin 50.3 H (0.0-1.0) mg/dL Direct Bilirubin > 30.0 H (0.0-0.5) mg/dL AST 151 H (5-37) U/L ALT 121 H (0-40) U/L Alkaline Phosphatase 707 H (39-117) U/L Total Protein 5.6 L (6.5-8.0) g/dL Albumin 3.3 L (3.5-5.0) g/dL Lipase 22 (8-78) U/L Urine Color Urine Appearance Urine pH (5.0-9.0) Ur Specific [place] (1.005-1.025) Urine Protein (Neg-Trace) mg/dL Urine Glucose (UA) (Negative) mg/dL Urine Ketones (Negative) mg/dL Urine Blood (Negative) Urine Nitrite (Negative) Ur Leukocyte Esterase (Negative) Salicylates < 5.0 L (15-30) mg/dL Acetaminophen < 17 (<30) mcg/mL Ethyl Alcohol < 10 mg/dL COVID-19 (CHARLIE) Negative (Negative) COVID-19 Clin Com See Note Hepatitis A IgG Ab (Nonreactive) Hepatitis A IgM Ab (Nonreactive) Hep Bs Antigen (Negative) Hep Bs Antibody (Nonreactive) Hep B Core Total Ab (Nonreactive) Hepatitis C Ab (EIA) (Nonreactive) 05/31/22 05/31/22 05/31/22 Range/Units 09:45 09:45 09:45 WBC (4.8-10.8) X10*3/uL RBC (4.60-5.80) X10*6/uL Hgb (14.0-18.0) g/dl Hct (42.0-52.0) % MCV (80.0-98.0) fL MCH (27.0-33.0) pg MCHC (31.0-36.0) g/dl RDW (11.0-16.0) % Plt Count (160-400) X10*3/uL MPV (9.4-12.4) fL Absolute Nucleated RBC (0.0-0.012) X10*3/uL Nucleated RBC % (auto) (0.0-0.2) /100WBC PT 29.7 H (10.0-13.1) SEC INR 2.5 H (0.9-1.1) APTT (26.0-36.4) SEC Sodium (135-145) mmol/L Potassium (3.3-5.1) mmol/L Chloride (96-108) mmol/L Carbon Dioxide (22-29) mmol/L Anion Gap (12-20) BUN (9-16) mg/dL Creatinine (0.5-1.4) mg/dL Estim Creat Clear Calc Estimated GFR Random Glucose (60-115) mg/dL Calcium (8.4-10.2) mg/dL Total Bilirubin (0.0-1.0) mg/dL Direct Bilirubin Cancelled (0.0-0.5) mg/dL AST (5-37) U/L ALT (0-40) U/L Alkaline Phosphatase (39-117) U/L Total Protein (6.5-8.0) g/dL Albumin (3.5-5.0) g/dL Lipase (8-78) U/L Urine Color Urine Appearance Urine pH (5.0-9.0) Ur Specific [place] (1.005-1.025) Urine Protein (Neg-Trace) mg/dL Urine Glucose (UA) (Negative) mg/dL Urine Ketones (Negative) mg/dL Urine Blood (Negative) Urine Nitrite (Negative) Ur Leukocyte Esterase (Negative) Salicylates (15-30) mg/dL Acetaminophen (<30) mcg/mL Ethyl Alcohol mg/dL COVID-19 ([facility]) (Negative) COVID-19 Clin Com Hepatitis A IgG Ab REACTIVE (Nonreactive) Hepatitis A IgM Ab Nonreactive (Nonreactive) Hep Bs Antigen (Negative) Hep Bs Antibody (Nonreactive) Hep B Core Total Ab (Nonreactive) Hepatitis C Ab (EIA) (Nonreactive) 05/31/22 05/31/22 05/31/22 Range/Units 09:45 09:45 11:08 WBC (4.8-10.8) X10*3/uL RBC (4.60-5.80) X10*6/uL Hgb (14.0-18.0) g/dl Hct (42.0-52.0) % MCV (80.0-98.0) fL MCH (27.0-33.0) pg MCHC (31.0-36.0) g/dl RDW (11.0-16.0) % Plt Count (160-400) X10*3/uL MPV (9.4-12.4) fL Absolute Nucleated RBC (0.0-0.012) X10*3/uL Nucleated RBC % (auto) (0.0-0.2) /100WBC PT (10.0-13.1) SEC INR (0.9-1.1) APTT 46.3 H (26.0-36.4) SEC Sodium (135-145) mmol/L Potassium (3.3-5.1) mmol/L Chloride (96-108) mmol/L Carbon Dioxide (22-29) mmol/L Anion Gap (12-20) BUN (9-16) mg/dL Creatinine (0.5-1.4) mg/dL Estim Creat Clear Calc Estimated GFR Random Glucose (60-115) mg/dL Calcium (8.4-10.2) mg/dL Total Bilirubin (0.0-1.0) mg/dL Direct Bilirubin (0.0-0.5) mg/dL AST (5-37) U/L ALT (0-40) U/L Alkaline Phosphatase (39-117) U/L Total Protein (6.5-8.0) g/dL Albumin (3.5-5.0) g/dL Lipase (8-78) U/L Urine Color DK YELLOW Urine Appearance Hazy Urine pH 6.5 (5.0-9.0) Ur Specific [place] 1.010 (1.005-1.025) Urine Protein Trace (Neg-Trace) mg/dL Urine Glucose (UA) Negative (Negative) mg/dL Urine Ketones Negative (Negative) mg/dL Urine Blood Negative (Negative) Urine Nitrite Negative (Negative) Ur Leukocyte Esterase Negative (Negative) Salicylates (15-30) mg/dL Acetaminophen (<30) mcg/mL Ethyl Alcohol mg/dL COVID-19 ([facility]LIE) (Negative) COVID-19 Clin Com Hepatitis A IgG Ab (Nonreactive) Hepatitis A IgM Ab (Nonreactive) Hep Bs Antigen Negative (Negative) Hep Bs Antibody NONREACTIVE (Nonreactive) Hep B Core Total Ab Nonreactive (Nonreactive) Hepatitis C Ab (EIA) Nonreactive (Nonreactive) Independent Interpretation I performed an independent interpretation of an: CT Scan Radiology Impression Discussion of test interpretation with radiology: I have reviewed the radiologist's reading. Radiologist Impression: CT/CT abdomen pelvis w IV con IMPRESSION: 1.? New marked intrahepatic biliary ductal dilatation. The gallbladder appears abnormal. Site of obstruction is near the miah hepatis. If percutaneous biliary drainage or ERCP is not performed, MRCP may be useful for further evaluation 2.? Multiple new liver masses, the largest centrally measuring 4.2 cm. 3.? Stable right adrenal nodules. 4.? Other incidental findings as described above including hepatosplenomegaly and degenerative changes in the spine. 5.? Pulmonary nodules at the lung bases, the largest measuring 1.2 cm. These are unchanged when compared to the 2018 study. ? Fleischner guidelines were followed. Discharge Plan Discharge Clinical Impression: Liver mass, Jaundice Patient Disposition: Home, Self-Care Instructions: Jaundice (ED) Additional Instructions: As we discussed, it is extremely important that you do not take any [id number] Tylenol/acetaminophen, even if this medication is prescribed to you you should not take this medication. It is very important that you hold your Xarelto, do not take your Xarelto until instructed otherwise by your doctor. You have been given the contact information for the gastroenterology office, Dr. Pride, please call their office tomorrow so that you can arrange for MRI to be scheduled. Additionally you should contact your primary care provider's office, to arrange for follow-up Return to the emergency department with any new or worsening symptoms or concerns, this might include confusion, dizziness, near passing out, severe headache, chest pain, shortness of breath, nausea, vomiting, abdominal pain, inability to tolerate eating or drinking. Prescriptions: No Action ferrous sulfate 325 mg (65 mg iron) tablet 325 mg PO BID 90 Days Qty: 180 2RF tobramycin 300 mg/4 mL solution for nebulization 300 mg inhalation Q12H 28 Days Qty: 224 6RF Rx Instructions: 28 days on 28 days off ipratropium-albuterol 0.5 mg-3 mg(2.5 mg base)/3 mL solution for nebulization 1 ml inhalation Q6H Qty: 1080 4RF ezetimibe 10 mg tablet 10 mg PO DAILY 90 Days Qty: 90 2RF albuterol sulfate 90 mcg/actuation HFA aerosol inhaler 2 puff PO Q6H PRN (Reason: for wheezing) Qty: 1 1RF Metamucil Packet 1 packet PO DAILY Rx Instructions: mix into at least 8 oz of water or juice before administering azithromycin 500 mg tablet 500 mg PO MOWEFR Xarelto 20 mg tablet 20 mg PO DAILY@1700 Trelegy Ellipta 200-62.5-25 mcg blister with device 1 inh PO DAILY Mucinex DM 30-600 mg tablet extended release 12 hr 2 tab PO Q12H PRN (Reason: Congestion) multivitamin Tablet 1 tab PO DAILY acetaminophen 325 mg tablet 650 mg PO Q4H PRN (Reason: pain) cetirizine 10 mg tablet 10 mg PO DAILY 90 Days Qty: 90 2RF cyanocobalamin (vitamin B-12) 100 mcg tablet 100 mcg PO DAILY 90 Days Qty: 90 3RF fluticasone propionate 50 mcg/actuation spray,suspension 2 spray intranasal BID 90 Days Qty: 3 2RF furosemide 80 mg tablet 80 mg PO BID Qty: 180 3RF gabapentin 800 mg tablet 800 mg PO TID 90 Days Qty: 270 2RF potassium chloride 10 mEq tablet extended release 10 meq PO DAILY Qty: 90 2RF omeprazole 40 mg capsule,delayed release(DR/EC) 40 mg PO DAILY Qty: 90 2RF nicotine (polacrilex) 4 mg lozenge 4 mg PO Q8H PRN (Reason: for nicotine cravings) Qty: 72 6RF telmisartan 40 mg tablet 40 mg PO DAILY Qty: 90 2RF clonazepam 2 mg tablet 2 mg PO BID 30 Days Qty: 60 4RF oxycodone-acetaminophen 10-325 mg tablet 1 tab PO Q6H PRN (Reason: pain, severe) 30 Days Qty: 120 0RF buprenorphine HCl 900 mcg film 900 mcg PO Q12H 30 Days Qty: 60 0RF Referrals: Lucho Mc PA-C [Primary Care Provider] - Daryl Pride [Physician] - Interventions: ED Discharge Assessment Last Done: 05/31/22 17:10 Discharge Date/Time: 05/31/22 17:11
[2022-05-31 09:57] LABS: Hemoglobin 12.4 g/dl (14.0-18.0); Mean Corpuscular HGB Conc 33.5 g/dl (31.0-36.0); Mean Corpuscular Hemoglobin 35.9 pg (27.0-33.0); Mean Corpuscular Volume 107.2 fL (80.0-98.0); Mean Platelet Volume 9.1 fL (9.4-12.4); Platelet Count 254 X10*3/uL (160-400); Red Blood Count 3.45 X10*6/uL (4.60-5.80); Red Cell Distribution Width 16.7 % (11.0-16.0); White Blood Count 5.4 X10*3/uL (4.8-10.8)
[2022-05-31 10:02] VITALS: PULSE 76; RESP 22; O2SAT 100
[2022-05-31 10:04] LABS: INTERNATIONAL NORM RATIO 2.5 (0.9-1.1); Prothrombin Time 29.7 SEC (10.0-13.1)
--- NOTE | 2022-05-31 10:04 | PC.NURSE ---
Alert and oriented, resp even and unlabored. IV established and labs drawn and sent. Brother at bedside.
[2022-05-31 10:06] LABS: COVID-19 Test Negative (Negative); IDNOW Serial# 9DB6401D
[2022-05-31 10:07] LABS: Partial Thromboplastin Time 46.3 SEC (26.0-36.4)
[2022-05-31 10:33] LABS: HBc Num1 0.14 S/CO (0.00-0.79); HBsAGNum1 0.27 S/CO (0.00-0.99); Hepatitis B Core Antibody Nonreactive (Nonreactive); Hepatitis B Surface Antigen Negative (Negative); ~HepC Num1 0.07 S/CO (0.00-0.79); ~Hepatitis B Surface Antibody NONREACTIVE (Nonreactive); ~Hepatitis C Antibody Nonreactive (Nonreactive)
[2022-05-31 10:34] LABS: Alanine Aminotransferase 121 U/L (0-40); Albumin Level 3.3 g/dL (3.5-5.0); Alkaline Phosphatase 707 U/L (39-117); Anion Gap 14 (12-20); Aspartate Amino Transferase 151 U/L (5-37); Bilirubin Direct > 30.0 mg/dL (0.0-0.5); Bilirubin Total 50.3 mg/dL (0.0-1.0); Blood Urea Nitrogen 14 mg/dL (9-16); Calcium 8.9 mg/dL (8.4-10.2); Carbon Dioxide 19 mmol/L (22-29); Chloride 104 mmol/L (96-108); Creatinine Clr Calc Pharmacy 113.8; Estimated Glomerular Filt Rate > 60; Glucose Random 96 mg/dL (60-115); Hepatitis A Antibody IgG REACTIVE (Nonreactive); Hepatitis A Antibody IgM 0.44 Index (0-0.79); Lipase 22 U/L (8-78); Potassium 3.3 mmol/L (3.3-5.1); Sodium 134 mmol/L (135-145); Total Protein 5.6 g/dL (6.5-8.0); ~Hepatitis A Antibody IgM Nonreactive (Nonreactive)
[2022-05-31 11:05] LABS: Acetaminophen LAB < 17 mcg/mL (<30); Ethanol < 10 mg/dL; Salicylate < 5.0 mg/dL (15-30)
[2022-05-31 11:20] LABS: Appearance Urine Hazy; Color Urine DK YELLOW; Glucose Urine UA Negative (Negative); Leukocyte Esterase Urine Negative (Negative); Nitrite Urine Negative (Negative); PH 6.5 (5.0-9.0); Urine Blood Negative (Negative); Urine Ketones Negative (Negative); Urine Protein Trace mg/dL (Neg-Trace)
[2022-05-31] MEDS: iohexoL 350 MG/ML 100 ML INFUS..BTL 85 ML IV (11:41)
--- NOTE | 2022-05-31 12:45 | PM.EVENT ---
Event Note Date of Service: 05/31/22 Event Note: GI Consult-Full note dictated--CT reviewed, case D/W patient and brother in detail, and discussed with ER provider. Imp: Malignant biliary obstruction due to a probable cholangiocarcinoma, gallbladder cancer, or pancreatic neoplasm. Rec: MRI/MRCP today. IV Vit K. Check tumor markers. Hold Xarelto, acetaminophen, and any statin meds. Discharge after MRI and will then plan for further outpatient w/u with probable ERCP at tertiary center and/or outpatient biopsy of liver mass. The patient and his brother are very comfortable with this plan. Thanks. Time Spent With Patient Time: Total time managing care of this patient today ____ minutes.
[2022-05-31] MEDS: Phytonadione (Vit K1) 10 MG in 0.9 % Sodium Chloride 50 ML 51 MG IV (14:08)
[2022-05-31 14:41] VITALS: BP 125/77; PULSE 91; RESP 19; O2SAT 98
--- NOTE | 2022-05-31 15:26 | PHA.MEDREC ---
Pharmacy Consult ? Medication Reconciliation Pharmacy has completed the medication reconciliation.
--- NOTE | 2022-05-31 23:53 | CONS_ITS ---
DATE OF SERVICE: 05/31/2022 REASON FOR CONSULTATION: Jaundice. HISTORY OF PRESENT ILLNESS: This has been obtained from the patient, his brother Ori, and the medical record. The patient is a 67-year-old male who describes the onset of jaundice and dark urine at least 4 weeks ago. During this time, he has not had any particular abdominal pain nor any other particular GI symptoms. He reports that his appetite has been normal and he denies any dysphagia, early satiety, nausea, vomiting, nor any obvious weight loss. He denies any particular abdominal pain other than feeling a little bloated. He reports that he has been somewhat constipated, but has not noticed any hematochezia nor melena. He has been using some MiraLAX for the relief of the constipation. He describes that he was a fairly heavy drinker up until his mid 30s. He has not used any alcohol since that time. He stopped smoking about 5 years ago. He does describe using between 8 and 10 extra strength Tylenol everyday for musculoskeletal pain. He does not use any nonsteroidal anti-inflammatory drugs. Today, he was seen in [facility] for a routine visit and due to his obvious jaundice he was referred to the emergency room. In the emergency room, he has been afebrile. Again, he feels well at the present time without any particular symptoms. He is not complaining of any pruritus. He denies any known family history of liver disease. He describes a history of hepatitis and jaundice in himself in the 1960s. His medications at home include acetaminophen, albuterol inhaler, clonazepam, iron, Flonase, furosemide, gabapentin, omeprazole, oxycodone, potassium, Xarelto, Trelegy. PAST MEDICAL HISTORY: Advanced chronic obstructive pulmonary disease with oxygen dependence. Lung nodules followed by periodic chest CTs in the [facility]monary Clinic. Atrial fibrillation. Chronic pain. He denies any history of myocardial infarction, stroke, nor diabetes. He has had multiple orthopedic surgeries including bilateral shoulder and bilateral knee replacements. Appendectomy. Hernia surgery. He denies any other significant surgeries as far as he can recall. Other medical issues include history of congestive heart failure, hyperlipidemia, hypertension, gastroesophageal reflux. SOCIAL HISTORY: He lives by himself. His brother Ori liver nearby and helps him regularly. He stopped smoking 5 years ago and stopped using alcohol about 30 years ago. FAMILY HISTORY: Noncontributory. REVIEW OF SYSTEMS: CONSTITUTIONAL: He reports he has actually been feeling at his baseline, both appetite and energy. SKIN: He has noticed jaundice. CARDIAC: No chest pain. PULMONARY: No hemoptysis nor any increasing pulmonary symptoms from baseline. GI: As above. PHYSICAL EXAMINATION: GENERAL: On exam, the patient is a pleasant, alert, and cooperative male. He is obviously jaundiced. There are no obvious spider angiomata. He does have some temporal wasting. HEENT: Icteric sclerae. NECK: Supple. CARDIAC: Normal S1 and S2.\ ABDOMEN: Soft, nondistended, and nontender. He has no definitive palpable mass. LABORATORY DATA: I did review his CT scan with the radiologist, which seems to show a mass in the area of the miah hepatis with significant intrahepatic biliary obstruction. The radiologist feels he does see some surrounding lymphadenopathy and no obvious pancreatic disease nor extrahepatic biliary obstruction at this point. White blood cell count 5.4, hemoglobin 12.4, platelets 254,000. PT 29.7, INR 2.5. Normal electrolytes; BUN 14, creatinine 0.8, total bilirubin of 50.3 with direct bilirubin over 30. AST 151, ALT 121, alkaline phosphatase 707. Albumin 3.3. Lipase 22. His liver profile in December 2021, was completely normal except for a slightly elevated alkaline phosphatase of 167. Other labs from today revealed a negative hepatitis B and C profile. Hepatitis A IgG was positive, but hepatitis A IgM was negative. COVID was negative. 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 At this point, he appears otherwise stable and without any sign of cholangitis nor any other acute intraabdominal process. He does take a significant amount of Tylenol daily, but I do not think his clinical picture is in relation to acetaminophen toxicity. At this point, I am going to order a MRI of the abdomen with magnetic resonance cholangiopancreatography for better evaluation of the biliary tree and then at that point decide whether we could perform endoscopic retrograde cholangiopancreatography here or if he would need to go to a tertiary center. Given his overall condition and CT findings, I doubt this will represent anything resectable. At this point, the patient actually would like to go home if possible. I advised him and his brother that given that his last dose of Xarelto was last evening we would have to wait at least 2 to 3 days before doing any invasive procedure such as biopsy or endoscopic retrograde cholangiopancreatography. As such, I think the patient can be discharged from the emergency room and we will then plan for outpatient followup in the immediate future with either an endoscopic retrograde cholangiopancreatography here or elsewhere, or possibly even a biopsy of any mass. However, given the biliary obstruction, I think an endoscopic retrograde cholangiopancreatography with attempted drainage of the biliary tree would be optimal. I have asked the emergency room to try to arrange an MRI today and then the patient will be discharged after that. If they cannot do it today, then we will try to arrange for it to be done as an outpatient in the immediate future. In the meantime, I have ordered some other labs before he is discharged including CEA level, CA-9-19 level, and alpha fetoprotein level. We will also give him a dose of vitamin K before discharge. He will be instructed to hold his Xarelto and any other potential hepatotoxic drugs such as acetaminophen or any statin medication he might be on. This has all been discussed with his brother and the patient in detail. They are comfortable with this plan. MD TESS Navarro/CAM / [id number] MTDD
[2022-06-02 08:58] LABS: Carbohydrate Antigen 19-9 181 U/mL (<34)
[2022-06-02 13:59] LABS: Alpha Fetoprotein 2.7 ng/mL (<6.1)
== END 2022-05-31 17:11 | disposition home or self-care (01) ==
PROVIDERS: Internal Medicine; Nurse Practitioner Family; Emergency Provider Student in an Organized Health Care Education/Training Program; PCP Physician Assistant
DX: R16.0 Hepatomegaly, not elsewhere classified (principal); R42 Dizziness and giddiness; R17 Unspecified jaundice; R10.9 Unspecified abdominal pain; I48.91 Unspecified atrial fibrillation; Z20.822 Contact with and (suspected) exposure to COVID-19; Z20.828 Contact with and (suspected) exposure to other viral communicable diseases; Z79.01 Long term (current) use of anticoagulants; Z87.891 Personal history of nicotine dependence; Z79.899 Other long term (current) drug therapy
CPT/HCPCS: 36415; 74177; 80048; 80076; 80143; 80179; 81003; 82077; 82105; 82248; 82378; 83690; 85027; 85610; 85730; 86301; 86704; 86706; 86708; 86709; 86803; 87340; 87635; 96365; 99212; 99284; J3430; Q9967

== ENCOUNTER 2022-06-02 08:06 | Outpatient (REF) | payer MEDICARE, MEDICAID, SELFPAY ==
--- NOTE | ~2022-06-02 | MR_ITS ---
EXAMINATION: MR ABDOMEN WITHOUT AND WITH CONTRAST CLINICAL INFORMATION: Biliary obstruction, mass on CT COMPARISON: CT abdomen pelvis 05/31/2022, CT abdomen pelvis 12/07/2016 TECHNIQUE: MRI of the abdomen before and after the IV administration of 10 mL of Gadavist was obtained using routine sequences. Heavily T2 weighted MRCP sequences were also obtained. FINDINGS: LUNG BASES: The visualized lung bases are unremarkable. KIDNEYS AND URETERS: Bosniak 1 and Bosniak 2 bilateral renal cysts, no imaging follow-up recommended. GALLBLADDER: Decompressed limiting evaluation. LIVER AND BILIARY TREE: Liver is enlarged measuring 24.3 cm in span. There multiple hypoenhancing masses in the liver, the largest a 5.2 cm mass centered at the junction of the bifurcations of the right and left hepatic ducts, likely resulting in the biliary obstruction. Additional hypoattenuating liver lesions measuring up to 2.4 cm in the right hepatic lobe, 101:29 and 2.4 cm in the left hepatic lobe, 101:29. There is severe intrahepatic biliary duct dilatation. Common bile duct is nondilated with no intraluminal filling defect to suggest choledocholithiasis. PANCREAS: Unremarkable SPLEEN: Spleen is enlarged measuring 17.6 cm in span. There are several indeterminate splenic lesions measuring 1 cm or less, several which demonstrates some faint T2 hyperintense signal. ADRENAL GLANDS: A 2.2 cm right adrenal nodule demonstrates loss of signal on opposed phase imaging compatible with an adrenal adenoma, present since 2017. GASTROINTESTINAL TRACT: Unremarkable. LYMPH NODES: No lymphadenopathy. VASCULAR: Unremarkable ABDOMINAL WALL: Unremarkable. OSSEOUS STRUCTURES: Few T2 bright lesions in the lumbar spine which saturate out on fat suppressed sequences suggesting focal fat. MR/MR abdomen wo/w con IMPRESSION: There are multiple hypoenhancing masses in the liver the largest a 5.2 cm mass centered at the junction of the bifurcation of the right and left hepatic ducts likely resulting in the biliary obstruction, with severe intrahepatic biliary duct dilatation. Differential considerations could include hepatic metastases of unknown primary versus a primary mass forming cholangiocarcinoma with hepatic metastases. Consider definitive characterization with tissue sampling. Few small splenic lesions measuring 1 cm or less demonstrates some faint T2 hyperintense signal, too small to definitively characterize however differential considerations could include small complex cyst or splenic metastases. Consider PET/CT or sampling as warranted clinically. Alternatively, if any outside prior postcontrast imaging is available to assess stability a comparison can be made. Hepatosplenomegaly. A 2.2 cm right adrenal adenoma, no follow-up imaging recommended. The findings and recommendations were discussed with Daryl Pride MD by telephone at 06/02/2022 8:26 PM and it was ascertained that the content and urgency of the report was understood at the time of direct communication.
== END 2022-06-02 08:07 | disposition home or self-care (01) ==
LOC: HO.MRI 08:06
PROVIDERS: Visit Provider Internal Medicine
DX: K83.1 Obstruction of bile duct (principal); R16.0 Hepatomegaly, not elsewhere classified; R93.2 Abnormal findings on diagnostic imaging of liver and biliary tract
CPT/HCPCS: 74183; A9585